=== PATIENT | female | born 1960 | race Asian ===

== ENCOUNTER 2022-10-17 21:44 | Emergency (ER) | payer MEDICAID ==
[~2022-10-17] VITALS: Ht 160 cm; Wt 54.4 kg
[2022-10-17 21:59] VITALS: BP_SYST 186; RESP 18; TEMP 98.4; O2SAT 99
--- NOTE | 2022-10-17 22:29 | NUR ---
PT BIB DAUGHTER FROM HOME, AMBULATED TO BED 5. PT A&Ox4, ABLE TO MAKE NEEDS KNOWN, DAUGHTER AT BEDSIDE. LANGUAGE BARRIER. PER PT'S DAUGHTER, PT C/O HTN x1 WEEK. PT HAS A HX OF CVA. PT DENIES PAIN AT THIS TIME. PT DENIES N/V/D, SOB/CHEST PAIN, AND FEVER/CHILLS. SAFETY PRECAUTIONS IN PLACE.
[2022-10-17] MEDS ORDERED: amLODIPine BESYLATE 10 MG TABLET PO ONE (23:15)
--- NOTE | 2022-10-17 23:15 | NUR ---
ER Dr. KENNEDY at bedside examining patient.
[2022-10-17 23:29] LABS: BASOPHILS % (AUTO) 0.6 % (0.0-2.0); EOSINOPHILS # (AUTO) 0.1 K/uL (0.0-0.4); EOSINOPHILS % (AUTO) 1.3 % (0.0-4.0); HEMATOCRIT 42.2 % (36-48); HEMOGLOBIN 14.3 g/dL (12.0-16.0); LYMPHOCYTES # (AUTO) 2.3 K/uL (1.0-5.5); LYMPHOCYTES % (AUTO) 31.1 % (20.5-51.5); MEAN CORPUSCULAR HEMOGLOBIN 28 pg (27-31); MEAN CORPUSCULAR HGB CONC 34 % (32-36); MEAN CORPUSCULAR VOLUME 82 fL (79.0-98.0); MONOCYTES # (AUTO) 0.5 K/uL (0.0-1.0); MONOCYTES % (AUTO) 6.6 % (1.7-9.3); NEUTROPHILS # (AUTO) 4.5 K/uL (1.8-7.7); NEUTROPHILS % (AUTO) 60.4 % (40.0-70.0); PLATELET COUNT (AUTO) 298 K/uL (130-430); RED BLOOD CELL COUNT(AUTO) 5.13 MIL/uL (4.2-6.2); RED CELL DISTRIBUTION WIDTH 13.9 % (9.0-15.0); WHITE BLOOD COUNT (AUTO) 7.5 K/uL (4.8-10.8)
[2022-10-18 00:03] LABS: CALCIUM 9.2 mg/dL (8.4-11.0); CREATININE 0.82 mg/dL (0.55-1.30)
[2022-10-18 00:07] LABS: ALBUMIN 4.1 g/dL (3.4-4.8); TOTAL BILIRUBIN 0.6 mg/dL (0.0-1.0)
[2022-10-18] MEDS ORDERED: LOSA100T23 PO (00:23)
[2022-10-18] MEDS ORDERED: NOR10 PO (00:23)
[2022-10-18] MEDS ORDERED: hydrALAZINE HCL 20 MG/ML VIAL IVP ONE (00:30)
[2022-10-18 01:29] VITALS: BP_SYST 151; PULSE 95; RESP 18; TEMP 98.4; O2SAT 96
--- NOTE | 2022-10-18 01:29 | NUR ---
Patient given written and verbal discharge instructions and verbalizes understanding. ER DR KENNEDY discussed with patient the results and treatment provided. Patient in stable condition. ID arm band removed. IV catheter removed intact and dressing applied, no active bleeding. Rx of LOSARTAN AND NORVASC given. Patient educated on pain management and to follow up with PMD. Pain Scale 0/10. Opportunity for questions provided and answered. Medication side effect fact sheet provided.
== END 2022-10-18 01:29 | disposition home or self-care (01) ==
LOC: SED 21:44
DX: I16.0 Hypertensive urgency (principal); I10 Essential (primary) hypertension; Z79.899 Other long term (current) drug therapy
CPT/HCPCS: 99285; 80053; 85025; 36415; 93005; 96374; J0360